=== PATIENT | female | born 1990 | race Caucasian/White ===

== ENCOUNTER 2016-12-22 23:25 | Emergency (ER) ==
[2016-12-22] MEDS ORDERED: ATIVAN IM STA (23:30)
--- NOTE | 2016-12-22 23:31 | ED.PDOC ---
General ED Provider: Dr. LITO ROSE Chief Complaint: Behavioral Complaint Stated Complaint: Patient is a 26 year old female who comes in escorted by police in a panic attack. She reports feeling of impending doom with numbness on the fingers and feelings of palpitations. She was worried that she may have prolonged q T syndrome after reading it on the internet. Time Seen by Physician: 23:40 Mode of Arrival: Wheelchair Information Source: Patient, Family Exam Limitations: No limitations Nursing and Triage Documentation Reviewed and Agree: Yes Psychological Complaint Exam - Psychiatric Complaint/Exam Patient Complains Of: Present: Other (anxiety) Onset/Duration: 1 day Symptoms Are: Still present Timing: Constant Initial Severity: Moderate Character: Present: Fearful, Anxious Associated Signs And Symptoms: Reports: Paranoid behavior. Denies: Hostile, Confused, Hallucinating, Sleep disturbance, Appetite change Related History: Denies: Suicidal thoughts, Suicidal plan, Suicidal gestures, Homicidal thoughts, Homicidal plan, Homicidal gestures, Prior attempts, Recent stressors, Drug ingestion Completed Suicide Risk Factors: None Patient Accompanied By: Family, Police Patient In Custody Of Police: No Social Withdrawal Present: No Social Isolation Present: No Prior Suicide Attempt: No Injury From Prior Suicide Attempt: No Related Surgical History: Reports: None Patient Uncooperative For Exam: Yes Mood: Present: Anxious Appearance: Present: Clean Thought Process: Present: Illogical Insight: Present: Poor Memory: Intact Judgement: Impaired Danger To Others: No Differential Diagnoses: Anxiety Review of Systems - Review Of Systems Constitutional: Reports: No symptoms Eyes: Reports: No symptoms Ears, Nose, Mouth, Throat: Reports: No symptoms Respiratory: Reports: No symptoms Cardiac: Reports: No symptoms GI: Reports: No symptoms : Reports: No symptoms Musculoskeletal: Reports: No symptoms Skin: Reports: No symptoms Neurological: Reports: Anxiety, Depressed Endocrine: Reports: No symptoms Hematologic/Lymphatic: Reports: No symptoms All Other Systems: Reviewed and Negative Past Medical History - Past Medical History Endocrine: Reports: None Cardiovascular: Reports: None Respiratory: Reports: None Hematological: Reports: None Gastrointestinal: Reports: None Genitourinary: Reports: None Neuro/Psych: Reports: Anxiety, Depression, Other (OCD) Musculoskeletal: Reports: None Cancer: Reports: None Other Pertinent Past Medical History: PCOS, - Surgical History General Surgical History: Reports: Appendectomy, Tonsillectomy - Family History Family History: Reports: None - Social History Smoking Status: Never smoker Hx Substance Use: No Alcohol Screening: None Lives: With family Physical Exam - Physical Exam Appearance: Ill-appearing, Obese Eyes: MARLY, EOMI, Conjunctiva clear ENT: Ears normal, Nose normal, Oropharynx normal Respiratory: Airway patent, Breath sounds clear, Breath sounds equal, Respirations nonlabored Cardiovascular: RRR, Pulses normal, No rub, No murmur GI/: Soft, Nontender, No masses, Bowel sounds normal, No Organomegaly Musculoskeletal: Normal strength, ROM intact, No edema, No calf tenderness Skin: Warm, Dry, Normal color Neurological: Sensation intact, Motor intact, Reflexes intact, Cranial nerves intact, Alert, Oriented Psychiatric: Anxious Interpretation - EKG Interpretation Rate: Tachy Rhythm: Sinus Ectopy: None [place]: NL ST Segment: Normal Interpretation: sinus Tachy Critical Care Note - Critical Care Note Total Time (mins): 0 Course - Course Orders, Labs, Meds: Orders Category Date Time Status EKG-(ED ONLY) Stat CARDIO 12/23/16 00:31 Ordered Lorazepam Inj [Ativan] MEDS 12/22/16 23:30 Discontinued 2 mg IM ONCE STA Medications Discontinued Medications Generic Name Dose Route Start Last Admin Trade Name Freq PRN Reason Stop Dose Admin Lorazepam 2 mg 12/22/16 23:30 12/22/16 23:40 Ativan IM 12/22/16 23:31 2 mg ONCE STA Administration Vital Signs: Temp Pulse Resp BP Pulse Ox 12/22/16 23:28 99.2 F 137 H 24 145/64 H 100 Departure - Departure Time of Disposition: 00:58 Disposition: HOME SELF-CARE Discharge Problem: Anxiety Instructions: Anxiety (ED) Condition: Fair Pt referred to PMD for follow-up: Yes Additional Instructions: Follow up with PCP in 3 days continue home anxiety medications. Allergies/Adverse Reactions: Allergies No Known Drug Allergies Adverse Reaction (Verified 12/23/16 00:33) Home Medications: Ambulatory Orders Alprazolam [Xanax] 0.25 mg PO TID PRN 12/22/16 Magnesium Glycinate [Mag Glycinate] 200 mg PO DAILY PRN 12/22/16 Theanine [Vitamelts Relax] 50 mg PO DAILY PRN 12/22/16 Disposition Discussed With: Patient, Family
[2016-12-22 23:40] VITALS: BP 145/64; TEMP 99.2; BMI 32.1
== END 2016-12-23 01:55 | disposition home or self-care (01) ==
LOC: ED 23:25
DX: F41.9 Anxiety disorder, unspecified (principal)
CPT/HCPCS: 93005; 93010; 96372; 99283